=== PATIENT | male | born 1970 | race African-American/Black ===

== ENCOUNTER 2016-07-17 13:24 | Emergency (ER) | payer SELFPAY | END 2016-07-17 13:33 | disposition home or self-care (01) | LOC: CFTX 13:24 | DX: S91.342A Puncture wound with foreign body, left foot, initial encounter (principal); Z23 Encounter for immunization; W22.8XXA Striking against or struck by other objects, initial encounter; Y99.0 Civilian activity done for income or pay | CPT/HCPCS: 90471; 90715; 99283 ==